=== PATIENT | female | born 1960 | race Caucasian/White ===

== ENCOUNTER 2018-07-24 18:37 | Observation (INO) | payer SELFPAY ==
[2018-07-24 22:06] LABS: ADD MAN DIFF? NO
[2018-07-24 22:08] LABS: BASOPHIL # 0.1 10^3/ul (0.0-0.1); BASOPHILS % 0.6 % (0.0-2.0); EOSINOPHILS # 0.1 10^3/ul (0.0-0.5); EOSINOPHILS % 1.3 % (0.0-7.0); HEMATOCRIT 39.4 % (37.0-47.0); HEMOGLOBIN 12.7 g/dl (12.0-16.0); LYMPHOCYTES # 2.6 10^3/ul (0.8-2.9); LYMPHOCYTES % 31.4 % (15.0-51.0); MEAN CORPUSCULAR HEMOGLOBIN 28.6 pg (29.0-33.0); MEAN CORPUSCULAR HGB CONC 32.2 g/dl (32.0-37.0); MEAN CORPUSCULAR VOLUME 88.7 fl (82.0-101.0); MEAN PLATELET VOLUME 8.8 fl (7.4-10.4); MONOCYTE # 0.5 10^3/ul (0.3-0.9); MONOCYTES % 5.8 % (0.0-11.0); NEUTROPHILS % 60.5 % (39.0-77.0); PLATELET COUNT 440 10^3/UL (140-415); RED BLOOD COUNT 4.44 10^6/ul (4.20-5.40); RED CELL DISTRIBUTION WIDTH 14.5 % (11.5-14.5)
[2018-07-24 22:08] LABS: WHITE BLOOD COUNT 8.2 10^3/ul (4.8-10.8)
[2018-07-24 22:25] LABS: ANION GAP 8 (5-13); BLOOD UREA NITROGEN 14 mg/dl (7-20); CALCIUM 10.1 mg/dl (8.4-10.2); CARBON DIOXIDE 26 mmol/L (21-31); CHLORIDE 107 mmol/L (97-110); CREATININE 0.67 mg/dl (0.44-1.00); Estimated GFR > 60 mL/min (>60); GLUCOSE 130 mg/dl (70-220); POTASSIUM 4.1 mmol/L (3.5-5.1); SODIUM 141 mmol/L (135-144)
[2018-07-24 22:28] LABS: INR 0.91; PROTIME 12.4 Sec (11.9-14.9)
[2018-07-24 22:29] LABS: PARTIAL THROMBOPLASTIN TIME 28.9 Sec (23.0-35.0)
[2018-07-24] MEDS ORDERED: ACETAMINOPHEN 325 MG TAB PO ×2 (23:00→23:30)
[2018-07-24] MEDS ORDERED: ONDANSETRON 4 MG INJ IV ×2 (23:00→23:30)
[2018-07-24] MEDS: SOD CHLORIDE 0.9% 1,000 ML IV (23:20)
[2018-07-24] MEDS: HYDROmorphONE 1 MG/ML SYG IV (23:22)
[2018-07-24] MEDS ORDERED: morphine 2 MG INJ IV (23:30)
[2018-07-24] MEDS ORDERED: NACL 0.9% 3 ML SYG IV (23:30)
[2018-07-24] MEDS ORDERED: LORAZEPAM 2 MG INJ IV (23:30)
[2018-07-24] MEDS ORDERED: NITROGLYCERIN (SL) 0.4 MG TAB SL (23:30)
[2018-07-24] MEDS ORDERED: MAGNESIUM HYDROXIDE 30ML CUP PO (23:30)
[2018-07-24] MEDS ORDERED: HYDROCODONE/APAP (5/325) TAB PO (23:30)
[2018-07-24] MEDS ORDERED: DOCUSATE SODIUM 100 MG CAP PO (23:30)
[2018-07-24] MEDS ORDERED: hydrALAzine 20 MG INJ IV (23:30)
[2018-07-24] MEDS ORDERED: ALBUTEROL/IPRATROPIUM (NEB) 3 ML AMP HHN (23:30)
[2018-07-24] MEDS: ONDANSETRON 4 MG INJ IV (23:31)
[2018-07-24] MEDS: SOD CHLORIDE 0.45% 1,000 ML IV (23:44)
[2018-07-24 23:47] LABS: FREE T4 (FREE THYROXINE) 0.95 ng/dl (0.64-1.79)
[2018-07-25] MEDS: PANTOPRAZOLE 40 MG INJ IV (05:44)
[2018-07-25 06:39] LABS: ADD MAN DIFF? NO
[2018-07-25 06:43] LABS: WHITE BLOOD COUNT 7.6 10^3/ul (4.8-10.8)
[2018-07-25 06:43] LABS: BASOPHILS % 0.4 % (0.0-2.0); EOSINOPHILS # 0.2 10^3/ul (0.0-0.5); EOSINOPHILS % 2.8 % (0.0-7.0); HEMATOCRIT 38.6 % (37.0-47.0); LYMPHOCYTES # 3.8 10^3/ul (0.8-2.9); LYMPHOCYTES % 49.6 % (15.0-51.0); MEAN CORPUSCULAR HEMOGLOBIN 27.8 pg (29.0-33.0); MEAN CORPUSCULAR HGB CONC 31.1 g/dl (32.0-37.0); MEAN CORPUSCULAR VOLUME 89.4 fl (82.0-101.0); MEAN PLATELET VOLUME 9.6 fl (7.4-10.4); MONOCYTE # 0.6 10^3/ul (0.3-0.9); MONOCYTES % 7.7 % (0.0-11.0); NEUTROPHILS % 39.4 % (39.0-77.0); PLATELET COUNT 407 10^3/UL (140-415); RED BLOOD COUNT 4.32 10^6/ul (4.20-5.40); RED CELL DISTRIBUTION WIDTH 14.7 % (11.5-14.5)
[2018-07-25 07:07] LABS: INR 0.95; PROTIME 12.8 Sec (11.9-14.9)
[2018-07-25 07:08] LABS: PARTIAL THROMBOPLASTIN TIME 30.1 Sec (23.0-35.0)
[2018-07-25 07:56] LABS: ANION GAP 8 (5-13); BLOOD UREA NITROGEN 13 mg/dl (7-20); CALCIUM 9.5 mg/dl (8.4-10.2); CARBON DIOXIDE 25 mmol/L (21-31); CHLORIDE 108 mmol/L (97-110); CREATININE 0.57 mg/dl (0.44-1.00); Estimated GFR > 60 mL/min (>60); GLUCOSE 87 mg/dl (70-220); PHOSPHORUS 4.3 mg/dl (2.5-4.9); POTASSIUM 3.6 mmol/L (3.5-5.1); SODIUM 141 mmol/L (135-144)
[2018-07-25 08:00] LABS: CHOL/HDL RATIO 3.2 RATIO; HDL CHOLESTEROL 56 mg/dl (37-92); LDL CHOLESTEROL,CALCULATED 107 mg/dl; TRIGLYCERIDES 103 mg/dl (0-149)
[2018-07-25 08:00] LABS: CHOLESTEROL 184 mg/dl (100-200)
[2018-07-25 08:59] LABS: HEMOGLOBIN A1C 5.5 % (0-5.9)
[2018-07-25] MEDS: HEPARIN 5,000 UNIT/1 ML VIAL SC (09:00)
[2018-07-25] MEDS ORDERED: GLYCOPYRROLATE 0.4 MG INJ (09:33)
[2018-07-25] MEDS ORDERED: NEOSTIGMINE 3 MG/3 ML SYRINGE (09:33)
[2018-07-25] MEDS: LACTATED RINGER'S 1,000 ML IV (09:41)
[2018-07-25] MEDS ORDERED: hydrALAzine 20 MG INJ IV (10:00)
[2018-07-25] MEDS ORDERED: KETOROLAC 15 MG INJ IV (10:00)
[2018-07-25] MEDS ORDERED: KETOROLAC 60 MG INJ IM (10:00)
[2018-07-25] MEDS ORDERED: LEVALBUTEROL (NEB) 0.63 MG/3 ML AMP HHN (10:00)
[2018-07-25] MEDS ORDERED: ONDANSETRON 4 MG INJ IV (10:00)
[2018-07-25] MEDS ORDERED: EPHEDrine 25 MG/5 ML SYG IV (10:00)
[2018-07-25] MEDS ORDERED: DIPHENHYDRAMINE 50 MG INJ IV (10:00)
[2018-07-25] MEDS ORDERED: MIDAZOLAM 1 MG/ML 2 ML INJ IV (10:00)
[2018-07-25] MEDS ORDERED: METOCLOPRAMIDE 10 MG INJ IV (10:00)
[2018-07-25] MEDS ORDERED: MEPERIDINE 25 MG INJ IV (10:00)
[2018-07-25] MEDS ORDERED: HYDROmorphONE 1 MG/5 ML IV SYRINGE IV ×3 (10:00)
[2018-07-25] MEDS ORDERED: KETOROLAC 30 MG INJ IV (10:00)
[2018-07-25] MEDS: SOD CHLORIDE 0.45% 1,000 ML IV (12:32)
[2018-07-25] MEDS: SOD CHLORIDE 0.9% 100 ML (14:22)
[2018-07-25] MEDS: IOHEXOL 300MG/ML 150 ML BTL (14:22)
== END 2018-07-25 18:43 | disposition home or self-care (01) ==
LOC: 2NE 22:47 → FTE 18:37
DX: T18.128A Food in esophagus causing other injury, initial encounter (principal); E04.1 Nontoxic single thyroid nodule; X58.XXXA Exposure to other specified factors, initial encounter
CPT/HCPCS: 36415; 70490; 80048; 80061; 83036; 83735; 84100; 84439; 84443; 85025; 85610; 85730; 99285-25; G0378